=== PATIENT | female | born 1980 | race Caucasian/White ===

== ENCOUNTER 2021-02-11 19:10 | Emergency (ER) | payer OTHER ==
[~2021-02-11] VITALS: Ht 165.1 cm; Wt 75.7 kg
[~2021-02-11 19:10] MED LIST: ACETAMINOOPHEN-1 TAB PO; CATAFLAM50 MG PO; CIPRO500 MG PO; KEFLEX250 MG PO; KETO10TA2 PO; ULTRACET PO; URIN D.S. TABLE1 TAB PO
== END 2021-02-11 22:28 | disposition home or self-care (01) ==
LOC: ER 19:10
DX: R07.89 Other chest pain (principal); F06.4 Anxiety disorder due to known physiological condition

== ENCOUNTER 2021-03-16 09:10 | Outpatient (CLI) | payer OTHER | END 2021-03-16 09:16 | disposition home or self-care (01) | LOC: MRI 09:10 | PROVIDERS: ATTEND Neuromusculoskeletal Medicine & OMM | DX: D49.6 Neoplasm of unspecified behavior of brain (principal); G40.909 Epilepsy, unspecified, not intractable, without status epilepticus | CPT/HCPCS: 70553 ==

== ENCOUNTER → 2021-05-29 | Outpatient (CLI) | payer OTHER | END | disposition home or self-care (01) | LOC: LAB 08:04 | PROVIDERS: ATTEND Neuromusculoskeletal Medicine & OMM | DX: G43.009 Migraine without aura, not intractable, without status migrainosus (principal); G44.209 Tension-type headache, unspecified, not intractable ==

== ENCOUNTER → 2021-06-04 07:30 | Outpatient (CLI) | payer OTHER | END | disposition home or self-care (01) | LOC: LAB 07:30 | PROVIDERS: ATTEND Internal Medicine | DX: I10 Essential (primary) hypertension (principal); E11.69 Type 2 diabetes mellitus with other specified complication; E03.8 Other specified hypothyroidism; E53.8 Deficiency of other specified B group vitamins; E55.9 Vitamin D deficiency, unspecified; D64.89 Other specified anemias; E78.00 Pure hypercholesterolemia, unspecified; N39.0 Urinary tract infection, site not specified; R80.8 Other proteinuria ==

== ENCOUNTER 2021-07-23 09:08 | Outpatient (CLI) | payer OTHER | END 2021-07-23 09:18 | disposition home or self-care (01) | LOC: MAMO-SONO 09:08 | PROVIDERS: ATTEND Obstetrics & Gynecology Gynecology | DX: N83.292 Other ovarian cyst, left side (principal); N83.291 Other ovarian cyst, right side; N60.11 Diffuse cystic mastopathy of right breast; N60.12 Diffuse cystic mastopathy of left breast ==

== ENCOUNTER → 2021-09-10 08:19 | Outpatient (CLI) | payer OTHER | END | disposition home or self-care (01) | LOC: LAB 08:19 | PROVIDERS: ATTEND Obstetrics & Gynecology Gynecology | DX: D64.9 Anemia, unspecified (principal); N39.0 Urinary tract infection, site not specified; E03.9 Hypothyroidism, unspecified; E55.9 Vitamin D deficiency, unspecified; E78.5 Hyperlipidemia, unspecified; Z12.11 Encounter for screening for malignant neoplasm of colon ==

== ENCOUNTER → 2021-09-11 08:05 | Outpatient (CLI) | payer OTHER | END | disposition home or self-care (01) | LOC: LAB 08:05 | PROVIDERS: ATTEND Obstetrics & Gynecology Gynecology | DX: D64.89 Other specified anemias (principal); N39.0 Urinary tract infection, site not specified; E03.8 Other specified hypothyroidism; E55.9 Vitamin D deficiency, unspecified; E78.49 Other hyperlipidemia; Z12.11 Encounter for screening for malignant neoplasm of colon ==

== ENCOUNTER 2021-10-27 19:08 | Emergency (ER) | payer OTHER ==
[~2021-10-27] VITALS: Ht 162.6 cm; Wt 70.8 kg
[2021-10-27] MEDS ORDERED: [UNRECOGNIZED DRUG - OTHER] TP (19:41)
[2021-10-27] MEDS ORDERED: PERCOGESIC EXT1 EACH PO (21:25)
== END 2021-10-27 21:57 | disposition home or self-care (01) ==
LOC: ER 19:08
DX: G43.009 Migraine without aura, not intractable, without status migrainosus (principal)

== ENCOUNTER 2022-04-24 19:12 | Emergency (ER) | payer OTHER ==
[~2022-04-24] VITALS: Ht 162.6 cm; Wt 72.6 kg
[~2022-04-24 19:12] MED LIST changes: +PERCOGESIC EXT1 EACH PO; +[UNRECOGNIZED DRUG - OTHER] TP
[2022-04-25] MEDS ORDERED: DOLOGESIC-DF 51 EACH PO (05:30)
[2022-04-25] MEDS ORDERED: PEPCID40 MG PO (05:30)
[2022-04-25] MEDS ORDERED: ONDANSETRON ODT4 MG PO (05:30)
== END 2022-04-25 05:37 ==
LOC: ER 19:12
DX: R10.13 Epigastric pain (principal); R11.0 Nausea; G43.909 Migraine, unspecified, not intractable, without status migrainosus

== ENCOUNTER 2024-07-04 06:45 | Emergency (ER) | payer OTHER ==
[~2024-07-04] VITALS: Ht 160 cm; Wt 81.2 kg
[~2024-07-04 06:45] MED LIST changes: +DOLOGESIC-DF 51 EACH PO; +ONDANSETRON ODT4 MG PO; +PEPCID40 MG PO
[2024-07-04] MEDS ORDERED: VENLAFAXINE HC150 M1 (07:12)
[2024-07-04] MEDS ORDERED: VASOTEC10 MG (07:12)
[2024-07-04] MEDS ORDERED: ETODOLAC200 MG (07:13)
[2024-07-04] MEDS ORDERED: BUSPIRONE HCL7.5 MG (07:13)
[2024-07-04] MEDS ORDERED: MIRTAZAPINE7.5 MG (07:13)
[2024-07-04] MEDS ORDERED: LAMOTRIGINE25 M3 (07:14)
[2024-07-04] MEDS ORDERED: ELETRIPTAN HBR20 MG PO (07:14)
[2024-07-04] MEDS ORDERED: TOPAMAX50 MG (07:14)
[2024-07-04] MEDS ORDERED: SUMATRIPTAN SUCCINATE 6 MG/0.5 ML VIAL SUBCUTANEO STA (08:25)
[2024-07-04] MEDS ORDERED: KETOROLAC TROMETHAMINE 30 MG VIAL IM STA (09:03)
[2024-07-04] MEDS ORDERED: ORPHENADRINE CITRATE 30 MG/ML AMPUL IM STA (09:04)
[2024-07-04] MEDS ORDERED: ORPHENADRINE CITRATE 100 MG TABLET PO STA (09:08)
[2024-07-04] MEDS ORDERED: DEXAMETHASONE SODIUM PHOSPHATE 4 MG/ML VIAL IM STA (09:14)
== END 2024-07-04 09:28 | disposition home or self-care (01) ==
LOC: ER 06:47
DX: G43.909 Migraine, unspecified, not intractable, without status migrainosus (principal)

== ENCOUNTER 2024-10-29 15:37 | Emergency (ER) | payer OTHER ==
[~2024-10-29] VITALS: Ht 162.6 cm; Wt 81.6 kg
[~2024-10-29 15:37] MED LIST changes: +BUSPIRONE HCL7.5 MG; +ELETRIPTAN HBR20 MG PO; +ETODOLAC200 MG; +LAMOTRIGINE25 M3; +MIRTAZAPINE7.5 MG; +TOPAMAX50 MG; +VASOTEC10 MG; +VENLAFAXINE HC150 M1
[2024-10-29] MEDS ORDERED: BUSPIRONE HCL15 MG (15:43)
[2024-10-29] MEDS ORDERED: KETOROLAC TROMETHAMINE 30 MG VIAL IV ONE (16:15)
[2024-10-29] MEDS ORDERED: 0.9 % SODIUM CHLORIDE 1,000 ML IV SCH (16:15)
[2024-10-29] MEDS ORDERED: CEFTRIAXONE SODIUM 1,000 MG VIAL IV ONE (16:15)
[2024-10-29 16:42] LABS: HEMATOCRIT 36.6 % (36.0-45.00); HEMOGLOBIN 12.3 g/dL (12.0-15.00); MEAN CELL VOLUME 82.9 fL (80.00-100.00); MEAN CORPUSCULAR HEMOGLOBIN 27.9 pg (27.00-32.0); MEAN CORPUSCULAR HGB CONC 33.7 g/dl (32.0-36.0); PLATELET COUNT 299 K/uL (150-450); RED BLOOD COUNT 4.42 M/uL (4.00-6.00); RED CELL DISTRIBUTION WIDTH 13.9 % (11.5-14.5)
[2024-10-29 17:06] LABS: ALBUMIN 3.4 gm/dL (3.4-5.0); BILIRUBIN TOTAL 0.29 mg/dL (0.3-1.2); CALCIUM 8.8 mg/dL (8.5-10.1); CREATININE SERUM 0.7 mg/dL (0.55-1.02); GFR 90.08; GLOBULINA 4.1 G/DL (2.4-3.5); POTASSIUM 3.85 mEq/L (3.5-5.1); TOTAL PROTEIN 7.5 gm/dL (6.4-8.2)
[2024-10-29 17:28] LABS: URINE APPEARANCE Clear; URINE BILIRRUBIN Moderate (NEGATIVE); URINE BLOOD NHT; URINE COLOR Dark Yellow; URINE GLUCOSE Negative (NEGATIVE); URINE KETONE Negative (NEGATIVE); URINE LEUKOCYTE Trace; URINE NITRATE Positive; URINE PROTEIN Negative (NEGATIVE)
[2024-10-29 17:32] LABS: URINE BACTERIA 17.1 uL (0.0-1933); URINE RBC 102.6 uL (0.0-20.8); URINE WBC 1.8 uL (0.0-23.2)
[2024-10-29] MEDS ORDERED: DICLOFENAC SODI75 MG PO (18:02)
== END 2024-10-29 18:32 | disposition home or self-care (01) ==
LOC: ER 15:40
PROVIDERS: General Practice
DX: N83.291 Other ovarian cyst, right side (principal); N39.0 Urinary tract infection, site not specified

== ENCOUNTER 2024-11-18 08:57 | Emergency (ER) | payer OTHER ==
[~2024-11-18] VITALS: Ht 162.6 cm; Wt 81.2 kg
[~2024-11-18 08:57] MED LIST changes: +BUSPIRONE HCL15 MG; +DICLOFENAC SODI75 MG PO
[2024-11-18] MEDS ORDERED: FAMOTIDINE/PF 20 MG in 0.9 % SODIUM CHLORIDE 8 ML IV PUSH STA (09:34)
[2024-11-18] MEDS ORDERED: DEXAMETHASONE SODIUM PHOSPHATE 4 MG/ML VIAL ONE (09:41)
[2024-11-18] MEDS ORDERED: FAMOTIDINE/PF 20 MG/2 ML VIAL ONE (09:41)
[2024-11-18] MEDS ORDERED: GUAIFENESIN/DEXTROMETHORPHAN 100MG/10ML BLIST.PACK PO ONE ×2 (09:41→09:45)
[2024-11-18] MEDS ORDERED: DEXAMETHASONE SODIUM PHOSPHATE 4 MG/ML VIAL IM ONE (09:45)
[2024-11-18 10:04] LABS: HEMATOCRIT 38.4 % (36.0-45.00); HEMOGLOBIN 12.8 g/dL (12.0-15.00); MEAN CELL VOLUME 83.5 fL (80.00-100.00); MEAN CORPUSCULAR HEMOGLOBIN 27.9 pg (27.00-32.0); MEAN CORPUSCULAR HGB CONC 33.4 g/dl (32.0-36.0); PLATELET COUNT 262 K/uL (150-450); RED BLOOD COUNT 4.59 M/uL (4.00-6.00); RED CELL DISTRIBUTION WIDTH 13.6 % (11.5-14.5)
[2024-11-18] MEDS ORDERED: TUSNEL LIQUID178 ML PO (11:21)
[2024-11-18] MEDS ORDERED: ZITHROMAX500 MG PO (11:21)
== END 2024-11-18 13:17 | disposition home or self-care (01) ==
LOC: ER 08:58
PROVIDERS: General Practice
DX: J06.9 Acute upper respiratory infection, unspecified (principal); J00 Acute nasopharyngitis [common cold]; Z20.822 Contact with and (suspected) exposure to COVID-19; I10 Essential (primary) hypertension

== ENCOUNTER 2025-04-25 17:44 | Emergency (ER) | payer OTHER ==
[~2025-04-25] VITALS: Ht 162.6 cm; Wt 79.4 kg
[~2025-04-25 17:44] MED LIST changes: +TUSNEL LIQUID178 ML PO; +ZITHROMAX500 MG PO
[2025-04-25] MEDS ORDERED: DEPAKOTE ER250 MG PO (18:08)
[2025-04-25] MEDS ORDERED: DEPAKOTE ER500 MG PO (18:08)
[2025-04-25] MEDS ORDERED: ONDANSETRON HCL 2 MG/ML VIAL IV ONE (20:15)
[2025-04-25] MEDS ORDERED: FAMOTIDINE/PF 20 MG/2 ML VIAL IV ONE (20:15)
[2025-04-25 21:12] LABS: BASO % 0.5 % (0.1-1.2); EOS # 0.17 (0.04-0.54); EOS % 2.3 % (0.7-7.0); LYMPH # 1.68 (1.18-3.74); LYMPH % 22.8 % (19.3-53.1); MEAN PLATELET VOLUME 11.70 fl (9.4-12.4); MONO # 0.61 (0.24-0.82); MONO % 8.3 % (4.7-12.5); NEUT # 4.86 (1.56-6.13); NEUT % 65.8 % (34.0-71.1); RED CELL DISTRIBUTION WIDTH 13.5 % (11.6-14.4)
[2025-04-25 21:32] LABS: ALT/SGPT 23 U/L (12-78); AST/SGOT 14 U/L (15-37); BILIRUBIN TOTAL 0.30 mg/dL (0.3-1.2); BILIRUBIN,CONJUGATED < 0.10 mg/dL (0.0-0.2); BUN CREA RATIO 25 (7.0-25.0); CREATININE SERUM 0.60 mg/dL (0.55-1.02); GFR 107.16; GLOBULINA 4.2 G/DL (2.4-3.5); GLUCOSE FASTING 89 mg/dL (65-100); OSMOLALITY SERUM 282 MOSM/KG (275-295)
[2025-04-25] MEDS ORDERED: ONDANSETRON ODT4 MG SL (22:18)
[2025-04-25] MEDS ORDERED: CARAFATE1 GM PO (22:18)
[2025-04-25] MEDS ORDERED: PEPCID AC20 MG PO (22:18)
== END 2025-04-25 22:54 | disposition home or self-care (01) ==
LOC: ER 17:44
PROVIDERS: Emergency Medicine
DX: K29.70 Gastritis, unspecified, without bleeding (principal); R10.9 Unspecified abdominal pain; I10 Essential (primary) hypertension; Z88.8 Allergy status to other drugs, medicaments and biological substances

== ENCOUNTER 2025-05-10 13:16 | Inpatient (IN) | payer OTHER ==
[~2025-05-10] VITALS: Ht 162.6 cm; Wt 81.6 kg
[~2025-05-10 13:16] MED LIST changes: +BACTRIM DS TAB1 EACH PO; +CARAFATE1 GM PO; +DEPAKOTE ER250 MG PO; +DEPAKOTE ER500 MG PO; +ONDANSETRON ODT4 MG SL; +PEPCID AC20 MG PO; +TAMS0.4C PO; +ZOFRAN8 MG PO
[2025-05-10] MEDS ORDERED: 0.9 % SODIUM CHLORIDE 1,000 ML IV STA (18:46)
[2025-05-10] MEDS ORDERED: FAMOtidine 10 MG/ML (4ML VIAL) IV PUSH STA (18:47)
[2025-05-10] MEDS ORDERED: PANTOPRAZOLE SODIUM 40 MG/VIAL VIAL IV PUSH STA (18:48)
[2025-05-10] MEDS ORDERED: HYOSCYAMINE SULFATE 0.125 MG TAB.SUBL ONE (18:54)
[2025-05-10] MEDS ORDERED: FAMOTIDINE/PF 20 MG/2 ML VIAL ONE (18:55)
[2025-05-10] MEDS ORDERED: HYOSCYAMINE SULFATE 0.125 MG TAB.SUBL SL ONE (19:00)
[2025-05-10 19:17] LABS: BASO % 0.6 % (0.1-1.2); EOS # 0.05 (0.04-0.54); EOS % 0.6 % (0.7-7.0); LYMPH # 1.72 (1.18-3.74); LYMPH % 21.5 % (19.3-53.1); MEAN PLATELET VOLUME 11.20 fl (9.4-12.4); MONO # 0.57 (0.24-0.82); MONO % 7.1 % (4.7-12.5); NEUT # 5.61 (1.56-6.13); NEUT % 70.1 % (34.0-71.1); RED CELL DISTRIBUTION WIDTH 13.2 % (11.6-14.4)
[2025-05-10 19:38] LABS: INR 1.09
[2025-05-10 19:53] LABS: ALT/SGPT 26.0 U/L (12-78); AST/SGOT 16.0 U/L (15-37); BILIRUBIN TOTAL 0.28 mg/dL (0.3-1.2); BUN CREA RATIO 14.0 (7.0-25.0); CREATININE SERUM 0.66 mg/dL (0.55-1.02); GFR 96.0; GLOBULINA 3.9 G/DL (2.4-3.5); GLUCOSE FASTING 134.0 mg/dL (65-100); OSMOLALITY SERUM 284.0 MOSM/KG (275-295)
[2025-05-10] MEDS ORDERED: ENALAPRIL MALEATE 10 MG TABLET PO SCH (21:17)
[2025-05-10] MEDS ORDERED: PANTOPRAZOLE SODIUM 40 MG in 0.9 % SODIUM CHLORIDE 8 ML IV PUSH SCH (21:22)
[2025-05-10] MEDS ORDERED: ACETAMINOPHEN 325 MG TABLET PO PRN (21:30)
[2025-05-10] MEDS ORDERED: METOCLOPRAMIDE HCL 10 MG in 0.9 % SODIUM CHLORIDE 50 ML IV PRN (21:30)
[2025-05-10] MEDS ORDERED: MORPHINE SULFATE 2 MG/ML SYRINGE IV PRN (21:30)
[2025-05-10] MEDS ORDERED: 0.9 % SODIUM CHLORIDE 1,000 ML IV SCH (21:30)
[2025-05-10] MEDS ORDERED: POTASSIUM CHLORIDE 20MEQ/100ML H2O PB IV ONE (22:00)
[2025-05-11] MEDS ORDERED: ACETAMINOPHEN 500 MG GEL..CAP PO ONE (01:02)
[2025-05-11] MEDS ORDERED: POTASSIUM CHLORIDE 20MEQ/100ML H2O PB IV ONE (03:05)
[2025-05-11 03:12] LABS: URINE APPEARANCE Clear; URINE BILIRRUBIN Negative (NEGATIVE); URINE BLOOD Moderate; URINE COLOR Yellow; URINE GLUCOSE Negative (NEGATIVE); URINE LEUKOCYTE Negative; URINE NITRATE Negative; URINE PROTEIN Negative (NEGATIVE); URINE UROBILINOGEN 0.2 E.U./dl
[2025-05-11 03:15] LABS: URINE BACTERIA 2151.4 uL (0.0-1933); URINE EPITHELIAL CELLS 14.9 uL (0.0-38.8); URINE RBC 72.3 uL (0.0-20.8); URINE WBC 10.1 uL (0.0-23.2)
[2025-05-11 03:24] LABS: URINE CAST 0.29 uL (0.0-1.40); URINE KETONE 40 (NEGATIVE)
[2025-05-11 05:04] LABS: ALT/SGPT 23.0 U/L (12-78); AST/SGOT 15.0 U/L (15-37); BILIRUBIN TOTAL 0.26 mg/dL (0.3-1.2); BUN CREA RATIO 13.0 (7.0-25.0); CREATININE SERUM 0.56 mg/dL (0.55-1.02); GFR 116.04; GLOBULINA 3.1 G/DL (2.4-3.5); GLUCOSE FASTING 90.0 mg/dL (65-100); OSMOLALITY SERUM 284.0 MOSM/KG (275-295)
[2025-05-11] MEDS ORDERED: ACETAMINOPHEN 500 MG GEL..CAP PO PRN (06:30)
[2025-05-11 07:47] VITALS: BP 123/80; O2SAT 100
[2025-05-11] MEDS ORDERED: PANTOPRAZOLE SODIUM 40 MG in 0.9 % SODIUM CHLORIDE 10 ML IV PUSH SCH (09:00)
[2025-05-11 17:09] VITALS: BP 120/88; O2SAT 100
[2025-05-12 03:08] VITALS: BP 109/71; O2SAT 99
[2025-05-12 09:04] VITALS: BP 103/75; O2SAT 100
[2025-05-12 17:51] VITALS: BP 123/83; O2SAT 100
[2025-05-12] MEDS ORDERED: FAMOTIDINE/PF 20 MG/2 ML VIAL IV SCH (21:00)
== END 2025-05-12 22:00 | DRG 392 ==
LOC: ER 13:16 → SEC-K 21:23 → MEDI 05-11 13:15
PROVIDERS: General Practice; ADMIT Internal Medicine; ATTEND Internal Medicine
PROC: CF141ZZ Planar Nuclear Medicine Imaging of Gallbladder using Technetium 99m (Tc-99m) (ICD-10-PCS; principal; 2025-05-10)
DX: K29.00 Acute gastritis without bleeding (principal); K82.8 Other specified diseases of gallbladder; E87.8 Other disorders of electrolyte and fluid balance, not elsewhere classified; E87.6 Hypokalemia; I10 Essential (primary) hypertension

== ENCOUNTER 2025-05-14 08:33 | Inpatient (IN) | payer OTHER ==
[~2025-05-14] VITALS: Ht 162.6 cm; Wt 81.6 kg
[2025-05-14] MEDS ORDERED: ONDANSETRON HCL 4 MG in 0.9 % SODIUM CHLORIDE 50 ML IV ONE (09:00)
[2025-05-14] MEDS ORDERED: 0.9 % SODIUM CHLORIDE 1,000 ML IV SCH (09:00)
[2025-05-14] MEDS ORDERED: KETOROLAC TROMETHAMINE 30 MG VIAL IU ONE (09:00)
[2025-05-14] MEDS ORDERED: FAMOtidine 10 MG/ML (4ML VIAL) IV PUSH ONE (09:00)
[2025-05-14] MEDS ORDERED: KETOROLAC TROMETHAMINE 30 MG VIAL ONE (09:07)
[2025-05-14] MEDS ORDERED: ONDANSETRON HCL 2 MG/ML VIAL ONE (09:08)
[2025-05-14] MEDS ORDERED: FAMOTIDINE/PF 20 MG/2 ML VIAL ONE (09:08)
[2025-05-14 09:55] LABS: BASO % 1.0 % (0.1-1.2); EOS # 0.12 (0.04-0.54); EOS % 2.1 % (0.7-7.0); LYMPH # 0.98 (1.18-3.74); LYMPH % 17.1 % (19.3-53.1); MEAN PLATELET VOLUME 11.60 fl (9.4-12.4); MONO # 0.39 (0.24-0.82); MONO % 6.8 % (4.7-12.5); NEUT # 4.18 (1.56-6.13); NEUT % 72.8 % (34.0-71.1); RED CELL DISTRIBUTION WIDTH 13.2 % (11.6-14.4)
[2025-05-14 10:14] LABS: INR 1.09
[2025-05-14 10:34] LABS: ALT/SGPT 22.0 U/L (12-78); AST/SGOT 15.0 U/L (15-37); BILIRUBIN TOTAL 0.38 mg/dL (0.3-1.2); BUN CREA RATIO 8.0 (7.0-25.0); CREATININE SERUM 0.59 mg/dL (0.55-1.02); GFR 109.25; GLOBULINA 4.1 G/DL (2.4-3.5); GLUCOSE FASTING 82.0 mg/dL (65-100); OSMOLALITY SERUM 281.0 MOSM/KG (275-295)
[2025-05-14] MEDS ORDERED: PIPERACILLIN/TAZOBACTAM SODIUM 3.375 GM VIAL IV ONE (11:34)
[2025-05-14] MEDS ORDERED: PIPERACILLIN/TAZOBACTAM SODIUM 3.375 GM in DEXTROSE 5 % IN WATER 100 ML IV SCH (12:00)
[2025-05-14 12:34] LABS: URINE APPEARANCE Clear; URINE BILIRRUBIN Negative (NEGATIVE); URINE BLOOD Moderate; URINE COLOR Yellow; URINE GLUCOSE Negative (NEGATIVE); URINE LEUKOCYTE Negative; URINE NITRATE Negative; URINE PROTEIN Trace (NEGATIVE); URINE UROBILINOGEN 0.2 E.U./dl
[2025-05-14 12:38] LABS: URINE BACTERIA 2077.1 uL (0.0-1933); URINE CAST 1.75 uL (0.0-1.40); URINE EPITHELIAL CELLS 52.3 uL (0.0-38.8); URINE RBC 157.8 uL (0.0-20.8); URINE WBC 13.9 uL (0.0-23.2)
[2025-05-14] MEDS ORDERED: ACETAMINOPHEN 500 MG GEL..CAP PO PRN (12:45)
[2025-05-14] MEDS ORDERED: ONDANSETRON HCL 4 MG in 0.9 % SODIUM CHLORIDE 50 ML IV PRN (12:45)
[2025-05-14 13:03] LABS: TYPE CELLS SQUAMOUS; URINE KETONE >=160 (NEGATIVE); URINE MUCUS MODERATE
[2025-05-14 22:40] VITALS: BP 109/74; O2SAT 100
[2025-05-15 05:49] VITALS: BP 106/70; O2SAT 99
[2025-05-15 06:10] VITALS: BP 106/70; O2SAT 99
[2025-05-15 06:27] VITALS: BP 106/70; O2SAT 99
[2025-05-15] MEDS ORDERED: ENALAPRIL MALEATE 10 MG TABLET PO SCH (09:00)
[2025-05-15] MEDS ORDERED: FAMOTIDINE/PF 20 MG in 0.9 % SODIUM CHLORIDE 8 ML IV PUSH SCH (09:00)
[2025-05-15 10:14] VITALS: BP 117/76
[2025-05-15 11:42] LABS: BASO % 1.0 % (0.1-1.2); EOS # 0.11 (0.04-0.54); EOS % 1.9 % (0.7-7.0); LYMPH # 1.16 (1.18-3.74); LYMPH % 20.1 % (19.3-53.1); MEAN PLATELET VOLUME 11.70 fl (9.4-12.4); MONO # 0.30 (0.24-0.82); MONO % 5.2 % (4.7-12.5); NEUT # 4.12 (1.56-6.13); NEUT % 71.6 % (34.0-71.1); RED CELL DISTRIBUTION WIDTH 13.3 % (11.6-14.4)
[2025-05-15 12:36] LABS: ALT/SGPT 19.0 U/L (12-78); AST/SGOT 11.0 U/L (15-37); BILIRUBIN TOTAL 0.38 mg/dL (0.3-1.2); BUN CREA RATIO 10.0 (7.0-25.0); CREATININE SERUM 0.42 mg/dL (0.55-1.02); GFR 161.72; GLOBULINA 3.2 G/DL (2.4-3.5)
[2025-05-15] MEDS ORDERED: DEXTROSE 50 % IN WATER 0.5 G/ML VIAL IV ONE ×2 (12:38→13:00)
[2025-05-15 12:39] LABS: OSMOLALITY SERUM 277.0 MOSM/KG (275-295)
[2025-05-15 12:42] LABS: GLUCOSE FASTING 49.0 mg/dL (65-100)
[2025-05-15] MEDS ORDERED: DEXTROSE 5 % AND 0.9 % NACL 1,000 ML IV SCH (13:00)
[2025-05-15 18:51] VITALS: BP 105/74
[2025-05-16 01:02] VITALS: BP 114/73; O2SAT 99
[2025-05-16 08:00] VITALS: BP 119/78; O2SAT 100
[2025-05-16] MEDS ORDERED: SUGAMMADEX SODIUM 200 MG/2 ML VIAL IV ONE (16:46)
[2025-05-16] MEDS ORDERED: ONDANSETRON HCL 2 MG/ML VIAL ONE (17:40)
[2025-05-16 22:37] VITALS: BP 139/84
[2025-05-17 01:52] VITALS: BP 130/85; O2SAT 99
[2025-05-17 09:18] VITALS: BP 127/84; O2SAT 97
[2025-05-17 17:27] VITALS: BP 149/88
[2025-05-18 03:02] VITALS: BP 117/74; O2SAT 100
[2025-05-18 10:07] VITALS: BP 114/80; O2SAT 97
== END 2025-05-18 11:37 | disposition home or self-care (01) | DRG 418 ==
LOC: ER 08:33 → MEDI 13:08
PROVIDERS: General Practice; Internal Medicine; Specialist; ADMIT Internal Medicine; ATTEND Internal Medicine
PROC: 0FT44ZZ Resection of Gallbladder, Percutaneous Endoscopic Approach (ICD-10-PCS; principal; 2025-05-16 16:15)
DX: K80.10 Calculus of gallbladder with chronic cholecystitis without obstruction (principal); R65.10 Systemic inflammatory response syndrome (SIRS) of non-infectious origin without acute organ dysfunction; K82.8 Other specified diseases of gallbladder